=== PATIENT | male | born 1975 | race Caucasian/White ===

== ENCOUNTER 2019-08-06 05:29 | Inpatient (IN) | payer OTHER ==
[2019-08-06] VITALS (15 sets, daily range): BP systolic 118–134; BP diastolic 73–87
[~2019-08-06] VITALS: Ht 188 cm; Wt 88.5 kg
[~2019-08-06 05:29] MED LIST: CENTRUM COMPLE1 EAC1 PO
[2019-08-06] MEDS ORDERED: DiphenhydrAMINE 25mg Tab ORAL PRN (06:00)
[2019-08-06] MEDS ORDERED: HYDROcodone/Acetamin 5/325 tab ORAL PRN ×2 (06:00→06:45)
[2019-08-06] MEDS ORDERED: Hydromorphone 0.5mg/0.5ml inj SUBQ PRN (06:00)
[2019-08-06] MEDS ORDERED: Morphine Sulfate 4mg/ml Inj (IV USE ONLY) IM PRN (06:00)
[2019-08-06] MEDS ORDERED: Chloraseptic Spray 20mL Bottle ORAL PRN (06:00)
[2019-08-06] MEDS ORDERED: Milk of Magnesia 30ml Ud ORAL PRN (06:15)
[2019-08-06] MEDS ORDERED: Rocuronium Bromide 50mg/5ml Inj IV ONE (06:33)
[2019-08-06] MEDS ORDERED: Thrombin 5000 units TOPIC ONE (06:36)
[2019-08-06] MEDS ORDERED: Gelfoam Size TOPIC ONE (06:36)
[2019-08-06] MEDS ORDERED: Bacitracin 50000 Units Vial ONE (06:36)
[2019-08-06] MEDS ORDERED: Bupivacaine 0.5% Inj 30 ml vial INJ ONE (06:36)
[2019-08-06] MEDS ORDERED: fentaNYL 100 mcg/2 mL IV ONE ×2 (06:42→08:50)
[2019-08-06] MEDS ORDERED: Dexamethasone 4mg/ml vial ONE (06:42)
[2019-08-06] MEDS ORDERED: Sodium Chloride 10ml vial INJ ONE (06:42)
[2019-08-06] MEDS ORDERED: Lidocaine 1% MPF 10mg/ml 5ml ONE (06:42)
[2019-08-06] MEDS ORDERED: Acetaminophen (Non formulary) 100 ML IV ONE (06:45)
[2019-08-06] MEDS ORDERED: Meperidine 25mg/0.5ml Inj (FOR RIGORS ONLY) IV PRN (06:45)
[2019-08-06] MEDS ORDERED: Ketorolac 30mg Inj IV PRN ×2 (06:45)
[2019-08-06] MEDS ORDERED: DiphenhydrAMINE 50mg/ml Inj IVP PRN (06:45)
[2019-08-06] MEDS ORDERED: Midazolam 2mg/2ml Inj IVP PRN (06:45)
[2019-08-06] MEDS ORDERED: oxyCODONE HCL/Acetaminophen 5/325mg ORAL PRN (06:45)
[2019-08-06] MEDS ORDERED: LORazepam Inj 2mg/ml 1ml IV PRN (06:45)
[2019-08-06] MEDS ORDERED: Atropine Sulfate 0.4mg/ml inj IVP PRN (06:45)
[2019-08-06] MEDS ORDERED: HYDROcodone/Acetamin 7.5/325 tab ORAL PRN (06:45)
[2019-08-06] MEDS ORDERED: LR 1000ml 1,000 ML IVLG SCH (06:45)
[2019-08-06] MEDS ORDERED: Hydromorphone 0.5mg/0.5ml inj IVP PRN (06:45)
[2019-08-06] MEDS ORDERED: fentaNYL 100 mcg/2 mL IV PRN (06:45)
--- NOTE | 2019-08-06 06:47 | Anethesia Preoperative Eval ---
Anesthesia Pre-op PMH/ROS General Date of Evaluation: August 06, 2019 Time of Evaluation: 06:49 Anesthesiologist: Parker ASA Score: ASA 2 Mallampati Score Class I : Soft palate, uvula, fauces, pillars visible Class II: Soft palate, uvula, fauces visible Class III: Soft palate, base of uvula visible Class IV: Only hard plate visible Mallampati Classification: Class I Surgeon: Lelo Diagnosis: Neck Pain Surgical Procedure: C5-7 ACDF Anesthesia History: none Family History: no anesthesia problems Allergies: Coded Allergies: No Known Allergies (Unverified , 08/04/19) Medications: see eMAR Patient NPO?: Yes Past Medical History Cardiovascular: Reports: HTN Endocrine: Reports: other - Thyroid Nodules PSxH Narrative: RIHR Anesthesia Pre-op Phys. Exam Physician Exam Last Vital Signs Date Time Temp Pulse Resp B/P (MAP) Pulse Ox O2 Delivery O2 Flow Rate FiO2 08/06/19 06:16 98.1 56 18 134/76 100 Room Air Constitutional: NAD Neurologic: CN 2-12 intact Cardiovascular: RRR Respiratory: CTA Gastrointestinal: S/NT/ND Airway Exam Mallampati Score: Class I MO: full ROM: limited Teeth: intact Anesthesia Pre-op A/P Risk Assessment & Plan Assessment: ASA 2 Plan: GA, SED, GlideScope Status Change Before Surgery: No Pre-Antibiotics Dru Grams Ancef IV Given Within 1 Hr of Incision: Yes Time Given: 07:26 Chris Canales MD August 06, 2019 06:47
[2019-08-06] MEDS ORDERED: Lidocaine 1% Plain 30 ml INJ ONE (06:52)
[2019-08-06] MEDS ORDERED: ceFAZolin sod 1 GM in NS 55 ML IVPB ONE (07:00)
[2019-08-06] MEDS ORDERED: propofoL 1,000mg/100ml IV ONE (07:00)
[2019-08-06] MEDS ORDERED: LR 1000ml ONE (07:00)
[2019-08-06] MEDS ORDERED: Sterile Water Irrig 1000ml IRRIG ONE (07:00)
[2019-08-06] MEDS ORDERED: NS Irrig 1000ml ONE (07:00)
[2019-08-06] MEDS ORDERED: Dexamethasone 20mg/5ml IVP ONE (07:00)
--- NOTE | 2019-08-06 07:07 | Immediate Post-Op Evaluation ---
Immediate Post-Op Evalulation Immediate Post-Op Evalulation Procedure: C5-7 ACDF Date of Evaluation: August 06, 2019 Time of Evaluation: 09:43 IV Fluids: 600 LR Blood Products: 0 Estimated Blood Loss: 25 Urinary Output: 0 Blood Pressure Systolic: 194 Blood Pressure Diastolic: 84 Pulse Rate: 54 Respiratory Rate: 16 O2 Sat by Pulse Oximetry: 100 Temperature (Fahrenheit): 97.1 Pain Score (1-10): 2 Nausea: No Vomiting: No Complications 0 Patient Status: awake, reacts, patent, extubated, none Hydration Status: adequate Dru Grams Ancef IV Given Within 1 Hr of Incision: Yes Time Given: 07:26 Chris Canales MD August 06, 2019 07:07
--- NOTE | 2019-08-06 07:08 | Pre-Procedure Note/Attestation ---
Pre-Procedure Note/Attestation Complete Prior to Procedure Planned Procedure: not applicable Procedure Narrative: ACDF C6-C7 Indications for Procedure Pre-Operative Diagnosis: Neurological deficit, pain. Attestation I attest that I discussed the nature of the procedure; its benefits; risks and complications; and alternatives (and the risks and benefits of such alternatives ), prior to the procedure, with the patient (or the patient's legal pharmaceutical specialty representative). I attest that, if there was a reasonable possibility of needing a blood transfusion, the patient (or the patient's legal pharmaceutical specialty representative) was given the [facility] standardized written summary, pursuant to the [place] Blood Safety Act ([place] Health and Safety Code # 1645, as amended). I attest that I re-evaluated the patient just prior to the surgery and that there has been no change in the patient's H&P, except as documented below: Guilherme Lind MD August 06, 2019 07:08
[2019-08-06] MEDS ORDERED: Rocuronium Bromide 100mg/10ml Inj IV ONE (08:11)
[2019-08-06] MEDS ORDERED: NS Irrig 1000ml IRRIG ONE (08:28)
[2019-08-06] MEDS ORDERED: Surgicel 4in x 8in TOPIC ONE (08:29)
[2019-08-06] MEDS ORDERED: Neostigmine 1mg/ml 10ml Inj ONE (08:46)
[2019-08-06] MEDS ORDERED: Glycopyrrolate 0.2mg/ml 1ml Vial ONE (08:46)
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
--- NOTE | 2019-08-06 09:02 | Brief Operative Note ---
Immediate Post Operative Note Operative Note Pre-op Diagnosis: Neurological deficit, pain. Procedure: ACDF C6-C7 SSEP micro Xray interbody Device osteopromotive material Anteior plate Post-op Diagnosis: same as pre-op Findings: consistent w/pre-op dx studies Surgeon: Lelo WEST Laborer Tanbark: Barbara Anesthesiologist: Parker WEST Anesthesia: general Specimen: yes Complications: none Condition: stable Fluids: anesthesia Estimated Blood Loss: minimal Drains: none Implant(s) used?: Yes Guilherme Lind MD August 06, 2019 09:02
[2019-08-06] MEDS ORDERED: Naloxone 0.4mg/ml Inj IVP PRN (09:15)
--- NOTE | 2019-08-06 09:47 | Diagnostic Imaging Report ---
XRAY C Spine 2-3v CLINICAL HISTORY: Neck pain. Cervical fusion. COMPARISON: None FINDINGS: Fluoroscopy independent procedure performed for cervical fusion. 11.6 seconds of fluoroscopy time utilized by the ordering physician. Total cumulative dose is 0.58 mGy and 0.0109 Gy.cm2. Total of 3 spot images are obtained . IMPRESSION: FLUOROSCOPY GUIDED PROCEDURE.
--- NOTE | 2019-08-06 10:50 | NUR ---
NURSE NOTES: Patient received from PACU via bed on O2 3LNC, in stable condition. Patient sleeping, arousable to name. Pain 7/10, denies need for pain medication. Neuro checks done, intact, skin warm, hands cool, pulses palpable, wiggles, no NT, hand grasps/pedal pushes strong equal 5/5. Left neck surgical dressing CDI, with ice compress. No NV. Complains of scratchy throat, will provide Chloraseptic. IVF D5 1/2 NS at 125ml via LH, site asymptomatic. Urinal provided. PT notified of patient's order for PT eval. Clear liquids diet provided. VSS. Oriented patient to room and call light. Will continue to monitor.
[2019-08-06] MEDS ORDERED: D5 1/2NS 1,000 ML IV SCH (13:00)
--- NOTE | 2019-08-06 14:27 | NUR ---
NURSE NOTES: Spoke to regarding patient and discharge and new order received. Order read back and carried out.
[2019-08-06] MEDS ORDERED: Tamsulosin 0.4mg cap ORAL SCH ×2 (15:00→21:00)
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
--- NOTE | 2019-08-06 15:12 | NUR ---
P.T NOTE: P.T EVALUATION COMPLETED. EDUCATION RE: SPINAL PRECAUTIONS AND PROPER BODY MECHANICS PROVIDED TO PATIENT. PATIENT ABLE TO VERBALIZE UNDERSTANDING AND WAS ABLE TO RETURN GOOD RETURN DEMONSTRATION DURING ADL/FUNCTIONAL MOBILITIES. PATIENT IS CURRENTLY FUNCTIONING INDEPENDENTLY AND SAFELY WITHIN THE SURGICAL GUIDELINES. NO FURTHER P.T FOLLOW UP NEEDED. [place] [facility]. THANK YOU FOR THIS REFERRAL.
[2019-08-06] MEDS ORDERED: HYDROCODON-ACE1 EA13 ORAL (16:52)
[2019-08-06] MEDS ORDERED: Docusate 100mg cap ORAL SCH (18:00)
--- NOTE | 2019-08-06 18:25 | NUR ---
NURSE NOTES: Discharge instructions, pain medication, ice pack and log roll technique packet reviewed, verbalized understanding. LH heplock discontinued, no active bleeding. Patient sent down to lobby via WC with Bertha POLANCO, in stable condition. Left neck dressing remains CDI. Discharged home at 1825.
--- NOTE | 2019-08-06 19:30 | Operative Note - Dictated ---
DATE OF OPERATION: 08/06/2019 PRIMARY SURGEON: Guilherme Lind PhD . ADMITTING/PREOPERATIVE DIAGNOSIS: Posttrauma cervical radiculopathy neurologic deficit C6-C7. POSTOPERATIVE DIAGNOSIS: Posttrauma cervical radiculopathy neurologic deficit C6-C7. OPERATIVE PROCEDURE: 1. ACDF C6-C7 with anterior internal plate fixation. 2. Interbody titanium device placement. 3. Osteopromotive material placement. 4. Intraoperative fluoroscopy interpreted by surgeon. 5. SSEP monitoring. 6. High-powered microscopic dissection. HEAD ANIMAL TRAINER: DENNIS Bucio. ANESTHESIA: Chris Canales MD, general with intubation. ESTIMATED BLOOD LOSS: Minimal. SPECIMEN: Disk fragments to pathology. COMPLICATIONS: None. POSTOP CONDITION: Good/stable. DESCRIPTION OF PROCEDURE: Patient was was brought to the operating room and in supine position, general anesthesia with intubation was induced. IV antibiotics, IV Decadron were administered 30 minutes prior to incision time. After appropriate positioning, a spinal needle within its sheath was taped to the right lateral aspect of patient's neck and a cross-table image was obtained interpreted by the surgeon for placement of incision. Needle and tape removed after appropriate markings undertaken with sterile pen on left lateral aspect of the neck. Anterior cervical spine was sterilely prepped and draped free in usual sterile fashion. Left transverse incision previously marked was sharply placed through dermis and epidermis. Electrocautery dissection was carried through the subcutaneous tissue to the level of the platysmas muscle, which was identified, isolated, and transected in line with the incision. Dissection was carried medial to the left sternocleidomastoid muscle and carotid sheath through the pretracheal and deep cervical fascia to the midline between the right and left longus colli muscles. A needle was placed into the disk space. The needle was bent at 90 degree angle so as to avoid penetration of the needle not greater than 3 mm into the disk space. Cross-table imaging was obtained under sterile conditions demonstrating the correct level as C6-C7. Position was marked. Longus colli muscles elevated. Retractors placed. Annulotomy at C6-C7 was performed followed with diskectomy to the posterior longitudinal ligament. Endplates were denuded of cartilaginous end caps and utilizing Midas Alejo bur dissection with model to be flat. Parallel. Distraction pins had been placed into the C6 and C7 vertebral bodies. Traction removed during this portion of the procedure with placement of interbody trial for excision of the size of the interbody titanium graft. The appropriate graft was obtained sterile. Osteopromotive material in local autograft were placed within titanium graft and was tamped into position. Inserting device of note has a stop device so as to avoid countersinking of the graft greater than 1 mm. Cross-table imaging was obtained with placement of the graft. Position excellent. Inserting device removed. Ten pounds of weight on the neck removed. Distraction pins removed. Bleeding bone cauterized with application of sterile wax. All this was performed under high-power magnification. Plate of the appropriate dimensions was fixated with bilateral C5 bilateral C6 screws placed in a compressive fashion. Of note is the plate and the internal fixation screws are not integral to the interbody device. Cross-table imaging revealed excellent alignment. AP imaging was obtained. Wound was irrigated copiously with antibiotic-containing saline. Exploration under high-power magnification revealed no obvious excoriation or laceration of vital structures. FloSeal was placed overlying the plate posterior to the esophagus. Reapproximation was undertaken of the platysmas muscle followed with subcuticular closure of dermis and epidermis. Transverse surgical strips placed followed with sterile bandage maintained in place with tape. Patient was awakened, extubated in the operating room, and transported to postop recovery in good stable condition. Guilherme Lind M.D. DR: KATHLEEN JOB#: [id number] CC:
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
== END 2019-08-06 18:25 | disposition home or self-care (01) | DRG 30 ==
LOC: SUR 05:29 → 3E 11:08
DX: M54.12 Radiculopathy, cervical region (principal); G89.18 Other acute postprocedural pain; V89.2XXS Person injured in unspecified motor-vehicle accident, traffic, sequela
CPT/HCPCS: 36415; 72040; 76000; 86850; 86900; 86901; 94003; 94150; 96360; J2180; J2405; J2710